=== PATIENT | male | born 1990 | race Caucasian/White ===

== ENCOUNTER 2018-03-25 20:08 | Emergency (ER) | payer SELFPAY ==
[~2018-03-25] VITALS: Ht 193 cm; Wt 120.2 kg
[~2018-03-25 20:08] MED LIST: PEPCID20 MG PO
[2018-03-25] MEDS ORDERED: Motrin,Rufen800 MG PO (20:33)
[2018-03-25] MEDS ORDERED: CLINDAMYCIN HC300 MG PO (20:33)
== END 2018-03-25 20:38 | disposition home or self-care (01) ==
LOC: ED 20:08
DX: K08.89 Other specified disorders of teeth and supporting structures (principal); F17.200 Nicotine dependence, unspecified, uncomplicated; Z88.0 Allergy status to penicillin

== ENCOUNTER 2018-05-03 18:03 | Emergency (ER) | payer OTHER ==
[~2018-05-03] VITALS: Wt 117.9 kg
[~2018-05-03 18:03] MED LIST changes: +CLINDAMYCIN HC300 MG PO; +Motrin,Rufen800 MG PO
== END 2018-05-03 19:16 | disposition home or self-care (01) ==
LOC: ED 18:03
DX: S46.811A Strain of other muscles, fascia and tendons at shoulder and upper arm level, right arm, initial encounter (principal); Z88.0 Allergy status to penicillin; W22.8XXA Striking against or struck by other objects, initial encounter; Y93.89 Activity, other specified; Y92.69 Other specified industrial and construction area as the place of occurrence of the external cause; Y99.9 Unspecified external cause status